=== PATIENT | male | born 1955 | race Caucasian/White ===

== ENCOUNTER 2017-05-17 16:04 | Emergency (ER) | payer BC ==
[~2017-05-17] VITALS: Ht 188 cm; Wt 116.5 kg
[2017-05-17 16:18] VITALS: Ht 188 cm; Wt 116.5 kg
[2017-05-17] MEDS ORDERED: IBUPROFEN 600 MG TAB PO STA (16:37)
--- NOTE | 2017-05-17 17:13 | DIAGNOSTIC IMAGING REPORT ---
CHEST ONE VIEW PORTABLE CLINICAL HISTORY: Fever, sepsis, tic bite COMPARISON STUDY: No previous studies for comparison. FINDINGS: The cardiac and mediastinal contours are normal. There is no evidence of focal pulmonary consolidation. There is no evidence of failure. No pleural effusions are visualized.[ IMPRESSION: No active disease in the chest. Electronically signed by: Carlos Short M.D. 05/17/2017 5:12 PM Dictated Date/Time: 05/17/2017 5:12 PM
[2017-05-17] MEDS ORDERED: FLVHFA110 INH (17:26)
[2017-05-17] MEDS ORDERED: B-CO1CAP3 PO (17:26)
[2017-05-17] MEDS ORDERED: VNTHFA/IN INH (17:26)
[2017-05-17 17:34] LABS: BASO % 0.2 %; BASO ABS # 0.01 K/uL (0-0.2); COMPLETE YES; EOS % 0.2 %; IG% 0.2 %; LYMPH % 10.2 %; LYMPH ABS # 0.61 K/uL (1.2-3.4); MEAN CELL VOLUME 86.5 fL (80-100); MEAN CORPUSCULAR HGB CONC 34.7 g/dl (32-36); MEAN PLATELET VOLUME 9.4 fL (7.4-10.4); MONO % 6.9 %; NEUT % 82.3 %; PLATELET COUNT 128 K/uL (130-400); WHITE BLOOD COUNT 5.97 K/uL (4.8-10.8)
[2017-05-17 17:48] LABS: BUN/CREATININE RATIO 11.1 (10-20); CALCIUM 8.6 mg/dl (8.5-10.1); CREATININE 1.3 mg/dl (0.60-1.40); POTASSIUM 3.8 mmol/L (3.5-5.1)
[2017-05-17 18:17] LABS: LYME DISEASE AB IGG NEG (NEG); LYME DISEASE AB IGM NEG (NEG)
[2017-05-17] MEDS ORDERED: DOXYCYCLINE HYCLATE 100 MG CAP PO ONE (19:45)
[2017-05-17] MEDS ORDERED: DOXY100C76 PO (19:48)
[2017-05-17 20:02] VITALS: BP 140/84; PULSE 76; TEMP 36.9; O2SAT 95
--- NOTE | 2017-05-17 22:34 | EMERGENCY ROOM VISIT NOTE ---
History Report prepared by Elizabeth: Ajit Mercado Under the Supervision of: Dr. Emeterio Lambert M.D. First contact with patient: 16:22 Chief Complaint: BITE Stated Complaint: FEVER OF 102, TICK BITE History of Present Illness The patient is a 62 year old male who presents to the Emergency Room with complaints of multiple tick bites that occurred recently. 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 He spends a lot of his time outdoors. He notes that his dogs occasionally bring in ticks as well. His found ticks recently to his back, chest, and right leg as well. He is also febrile with a temperature of 102 F, which started yesterday. He is experiencing fatigue and chills as well. He has been taking Tylenol for his fever. He was recently in [place]. He has a past medical history of asthma. Pt denies LOC, headache, diaphoresis, visual changes, neck pain, chest pain, breathing difficulties, nausea, vomiting , abdominal pain, back pain, melena, hematochezia, urinary symptoms, numbness, weakness, lymphadenopathy, rash, or other complaints. He denies any known allergies. Source of History: patient Onset: Recently Position: chest, back, leg (right) Symptom Intensity: 3 Known Quality: other (Tick Bites) Timing: constant Associated Symptoms: + fevers, + chills, + fatigue Review of Systems See HPI for pertinent positives and negatives. A total of ten systems were reviewed and were otherwise negative. Past Medical & Surgical Medical Problems: (1) Asthma Family History Omitted secondary to the patient's age. Social History Smoking Status: Never Smoker Smokeless Tobacco Use: No Drug Use: none Marital Status: Housing Status: lives with roommate Occupation Status: employed Current/Historical Medications Scheduled B-Complex Vitamins (B Complex), 1 CAP PO DAILY Doxycycline Monohydrate (Monodox), 100 MG PO BID Scheduled PRN Albuterol Hfa (Ventolin Hfa), 2-4 PUFFS INH Q6H PRN for SOB/Wheezing Fluticasone Propionate (Flovent Hfa), 2 PUFFS INH BID PRN for SOB/Wheezing Allergies Coded Allergies: No Known Allergies (Unverified , 05/17/17) Physical Exam Vital Signs Date Time Temp Pulse Resp B/P (MAP) Pulse Ox O2 Delivery O2 Flow Rate FiO2 05/17/17 20:02 36.9 76 18 140/84 95 05/17/17 19:24 76 18 136/72 95 Room Air 05/17/17 18:02 37.5 86 16 131/55 96 Room Air 05/17/17 16:18 38.1 92 18 150/88 96 Room Air Physical Exam GENERAL: Awake, alert, well-appearing, in no distress HENT: Normocephalic, atraumatic. Oropharynx unremarkable. EYES: Normal conjunctiva. Sclera non-icteric. NECK: Supple. No nuchal rigidity. FROM. No JVD. RESPIRATORY: Clear to auscultation. CARDIAC: Regular rate, normal rhythm. Extremities warm and well perfused. Pulses equal. ABDOMEN: Soft, non-distended. No tenderness to palpation. No rebound or guarding. No masses. RECTAL: Deferred. MUSCULOSKELETAL: Chest examination reveals no tenderness. The back is symmetrical on inspection without obvious abnormality. There is no CVA tenderness to palpation. No joint edema. LOWER EXTREMITIES: Calves are equal size bilaterally and non-tender. No edema. No discoloration. Tick parts removed from the right posterior thigh. NEURO: Normal sensorium. No sensory or motor deficits noted. SKIN: No rash or jaundice noted. Medical Decision & Procedures ER Provider Diagnostic Interpretation: Radiology results as stated below per my review and radiologist interpretation: CHEST ONE VIEW PORTABLE CLINICAL HISTORY: Fever, sepsis, tic bite COMPARISON STUDY: No previous studies for comparison. FINDINGS: The cardiac and mediastinal contours are normal. There is no evidence of focal pulmonary consolidation. There is no evidence of failure. No pleural effusions are visualized.[ IMPRESSION: No active disease in the chest. Electronically signed by: Carlos Short M.D. 05/17/2017 5:12 PM Dictated Date/Time: 05/17/2017 5:12 PM Laboratory Results 05/17/17 17:00 Red Blood Count 5.20, Mean Corpuscular Volume 86.5, Mean Corpuscular Hemoglobin 30.0, Mean Corpuscular Hemoglobin Concent 34.7, Mean Platelet Volume 9.4, Neutrophils (%) (Auto) 82.3, Lymphocytes (%) (Auto) 10.2, Monocytes (%) (Auto) 6.9, Eosinophils (%) (Auto) 0.2, Basophils (%) (Auto) 0.2, Neutrophils # (Auto) 4.92, Lymphocytes # (Auto) 0.61, Monocytes # (Auto) 0.41, Eosinophils # (Auto) 0.01, Basophils # (Auto) 0.01 05/17/17 17:00 Test 05/17/17 16:55 05/17/17 17:00 Influenza Type A Antigen Neg for Influ A (NEG) Influenza Type B Antigen Neg for Influ B (NEG) White Blood Count 5.97 K/uL (4.8-10.8) Red Blood Count 5.20 M/uL (4.7-6.1) Hemoglobin 15.6 g/dL (14.0-18.0) Hematocrit 45.0 % (42-52) Mean Corpuscular Volume 86.5 fL (80-100) Mean Corpuscular Hemoglobin 30.0 pg (25-34) Mean Corpuscular Hemoglobin Concent 34.7 g/dl (32-36) Platelet Count 128 K/uL (130-400) Mean Platelet Volume 9.4 fL (7.4-10.4) Neutrophils (%) (Auto) 82.3 % Lymphocytes (%) (Auto) 10.2 % Monocytes (%) (Auto) 6.9 % Eosinophils (%) (Auto) 0.2 % Basophils (%) (Auto) 0.2 % Neutrophils # (Auto) 4.92 K/uL (1.4-6.5) Lymphocytes # (Auto) 0.61 K/uL (1.2-3.4) Monocytes # (Auto) 0.41 K/uL (0.11-0.59) Eosinophils # (Auto) 0.01 K/uL (0-0.5) Basophils # (Auto) 0.01 K/uL (0-0.2) RDW Standard Deviation 42.0 fL (36.4-46.3) RDW Coefficient of Variation 13.2 % (11.5-14.5) Immature Granulocyte % (Auto) 0.2 % Immature Granulocyte # (Auto) 0.01 K/uL (0.00-0.02) Anion Gap 8.0 mmol/L (3-11) Est Creatinine Clear Calc Drug Dose 82.0 ml/min Estimated GFR () 68.7 Estimated GFR (Non- 59.3 BUN/Creatinine Ratio 11.1 (10-20) Calcium Level 8.6 mg/dl (8.5-10.1) Total Bilirubin 0.6 mg/dl (0.2-1) Direct Bilirubin 0.1 mg/dl (0-0.2) Aspartate Amino Transf (AST/SGOT) 35 U/L (15-37) Alanine Aminotransferase (ALT/SGPT) 44 U/L (12-78) Alkaline Phosphatase 80 U/L (45-117) Total Protein 7.4 gm/dl (6.4-8.2) Albumin 3.5 gm/dl (3.4-5.0) Lyme Disease IgG Antibody NEG (NEG) Lyme Disease IgM Antibody NEG (NEG) Laboratory results reviewed by me Medications Administered Medications (Trade) Dose Ordered Sig/Shelley Route Start Time Stop Time Status Last Admin Dose Admin Ibuprofen (Motrin Tab) 600 mg NOW STAT PO 05/17/17 16:37 05/17/17 16:39 DC 05/17/17 17:13 600 MG Doxycycline Hyclate (Vibramycin Cap) 100 mg ONE ONCE PO 05/17/17 19:45 05/17/17 19:46 DC 05/17/17 19:58 100 MG ED Course 1622: The patient was evaluated in room B12B. A complete history and physical exam was performed. 1637: Ordered Motrin Tab 600 mg PO 1944: Ordered Vibramycin Cap 100 mg PO 2014: I reevaluated the patient. Discussed results and discharge instructions: He verbalized understanding and agreement. The patient is ready for discharge. Medical Decision Triage Nursing notes reviewed. The patient's presentation and history were concerning for fever and multiple tick bites. Etiologies such as Lyme disease, viral syndrome, otitis, pharyngitis, pneumonia , urinary tract infection, sepsis, bacteremia, meningitis, tick borne diseases, as well as others were entertained. Patient was evaluated. Physical examination was benign as above. No headache. No meningeal findings. He had no clear evidence of erythema migrans but had several ticks that were present for more than 48 hours. Chest x-ray was performed and was negative. Flu testing was negative. His CBC and chemistry panel unremarkable. I did order a Lyme titer and this came back negative but my concern is that he has acute onset of Lyme disease. History would support this. I discussed conservative management with him and his . The patient was given oral Motrin. He was also given oral doxycycline. I will treat him as an outpatient with 21 days of doxycycline. If he worsens in any way he will come back. He will establish primary care here as he is traveling between [place] in [place] on a regular basis. I gave my usual and customary discussion regarding this issue. By the evaluation outlined above other emergent etiologies such as those listed in the differential, as well as others, were deemed relatively unlikely. The patient was educated about the findings as listed above. All questions were answered and the patient was pleased with the treatment. Return instructions were outlined and the patient was discharged in stable condition. Medication Reconcilliation Current Medication List: was personally reviewed by me Blood Pressure Screening Patient's blood pressure: Elevated blood pressure Blood pressure disposition: Elevated BP felt to be situational Impression Primary Impression: Febrile illness Additional Impression: Tick bite Scribe Attestation The scribe's documentation has been prepared under my direction and personally reviewed by me in its entirety. I confirm that the note above accurately reflects all work, treatment, procedures, and medical decision making performed by me. Departure Information Dispostion Home / Self-Care Prescriptions Doxycycline Monohydrate (Monodox) 100 Mg Cap 100 MG PO BID, #21 CAP Prov: Emeterio Lambert MD 05/17/17 Referrals No Doctor, Assigned (PCP) Forms HOME CARE DOCUMENTATION FORM, IMPORTANT VISIT INFORMATION, Work Instructions Patient Instructions My [facility] Additional Instructions Doxycycline 100mg: Take one pill twice daily for 21 days for your infection. Take with food, but avoid dairy. Avoid prolonged sun exposure since this medication makes you temporarily more susceptible to sunburns. All antibiotics can cause diarrhea. If this occurs and you feel worse or it does not resolve in 1-2 days follow up with your doctor or return to the Emergency Department as this could be signs of serious underlying problems. Any medication can cause an allergic reaction, stop the pills immediately and return to the ER for rash, hives, breathing difficulties, or swelling. Acetaminophen(Tylenol) may be used for fever or pain. Use 1000mg every six hours as needed. Avoid using more than 4000mg in a 24 hour period. (AND/OR) Ibuprofen(Motrin, Advil) may be used for fever or pain. Use 600mg every six hours as needed. Take with food. Avoid using more than 2400mg in a 24 hour period. Do not use 2400mg per day for more than three consecutive days without physician direction. Prolonged inappropriate use can lead to stomach upset or ulcers. Rest and drink plenty of fluids. Controlling your fever with Tylenol and Ibuprofen as above will make you feel better. Return to the ER for severe headache, neck stiffness, chest pain, difficulty breathing, fevers, vomiting, worsening of your condition, or as needed. Follow up with a primary physician this week for a recheck of your current condition. Problem Qualifiers Additional Impression: Tick bite Encounter type: initial encounter Qualified Codes: W57.XXXA - Bitten or stung by nonvenomous insect and other nonvenomous arthropods, initial encounter
== END 2017-05-17 20:02 | disposition home or self-care (01) ==
LOC: C.EDB 16:06
DX: R50.9 Fever, unspecified (principal); S70.361A Insect bite (nonvenomous), right thigh, initial encounter; W57.XXXA Bitten or stung by nonvenomous insect and other nonvenomous arthropods, initial encounter; J45.909 Unspecified asthma, uncomplicated